=== PATIENT | male | born 1990 | race Caucasian/White ===

== ENCOUNTER 2017-10-16 18:34 | Emergency (ER) | payer BC ==
[2017-10-16 18:47] VITALS: BP 126/98; PULSE 94; O2SAT 96
[2017-10-16] MEDS ORDERED: XYLOCAINE 2% HCL 20 ML MDV ONE (18:48)
[2017-10-16] MEDS ORDERED: XYLOCAINE 2% HCL 20 ML MDV IJ ONE (18:50)
--- NOTE | 2017-10-16 19:22 | ERPHSYRPT ---
- History of Present Illness Time Seen by Provider: 10/16/17 18:55 Source: patient Exam Limitations: clinical condition Patient Subjective Stated Complaint: pt reports accidently cutting tip of middle finger of left hand with a razor blade-denies numbness or tinlging to extremity Triage Nursing Assessment: pt pink warm and [id number] noted to finger with bleeding controlled with pressure upon arrival-resp easy and nonlabored-pt anxious but cooperative Physician History: PATIENT SUSTAINED LACERATION TO HIS LEFT MIDDLE FINGER TIP OFF UTILITY KNIFE, ASSOCIATED WITH BLEEDING. Occurred: just prior to arrival Method of Injury: incised Quality: constant Severity of Pain-Max: mild Severity of Pain-Current: mild Extremities Pain Location: 4th finger: right Modifying Factors: Improves With: movement Associated Symptoms: none Allergies/Adverse Reactions: No Known Drug Allergies Allergy (Unverified 10/16/17 18:42) Hx Tetanus, Diphtheria Vaccination/Date Given: Yes Hx Influenza Vaccination/Date Given: No Hx Pneumococcal Vaccination/Date Given: No Immunizations Up to Date: Yes - Review of Systems Constitutional: No Symptoms Musculoskeletal: Injury Psychological: No Symptoms Endocrine: No Symptoms - Past Medical History Pertinent Past Medical History: No - Past Surgical History Past Surgical History: Yes Musculoskeletal: Orthopedic Surgery - Social History Smoking Status: Current every day smoker How long have you smoked: yrs Exposure to second hand smoke: Yes Drug Use: none Patient Lives Alone: No - Nursing Vital Signs Nursing Vital Signs: Initial Vital Signs Temperature 98.4 F 10/16/17 18:42 Pulse Rate 94 H 10/16/17 18:42 Respiratory Rate 18 10/16/17 18:42 Blood Pressure 126/98 10/16/17 18:42 O2 Sat by Pulse Oximetry 96 10/16/17 18:42 Pain Scale Pain Intensity 7 - Physical Exam General Appearance: no apparent distress Hand Exam: laceration (THERE IS A 2CM LACERATION OVER DISTAL PHALANGX LEFT MIDDLE FINGER ADJACENT TO NAIL FOLD, FULL RANGE OF MOTION OF MCP, PIP AND DIP JOINT) SpO2 Interpretation: normal SpO2: 96 Oxygen Delivery: Room Air Procedures - Laceration/Wound Repair Left Hand Wound Location: Left (MIDDLE FINGER) Wound Length (cm): 2 Wound's Depth, Shape: linear Wound Explored: clean Irrigated: Yes Hibiclens Prep: Yes Anesthesia: digital block, 2% Lidocaine Volume Anesthetic (ccs): 5 Wound Repaired With: sutures Suture Size/Type: 4-0, nylon Number of Sutures: 7 Sterile Dressing Applied?: Yes Ordered Tests: Active Orders 24 hr Category Date Time Status Wound Care STAT Care 10/16/17 18:50 Active Medication Summary Discontinued Medications Generic Name Dose Route Start Last Admin Trade Name [place] PRN Reason Stop Dose Admin Lidocaine HCl Confirm 10/16/17 18:48 Xylocaine 2% Hcl 20 Ml Mdv Administered 10/16/17 18:49 Dose 1 ml .ROUTE .STK-MED ONE Lidocaine HCl 5 ml 10/16/17 18:50 10/16/17 18:53 Xylocaine 2% Hcl 20 Ml Mdv IJ 10/16/17 18:51 5 ml STAT ONE Administration - Progress Progress: improved Counseled pt/family regarding: diagnosis, need for follow-up - Departure Time of Disposition: 19:25 Departure Disposition: Home Clinical Impression: LACERATION LEFT MIDDLE FINGER Condition: Stable Critical Care Time: No Additional Instructions: KEFLEX 500MG EVERY 8 HOURS FOR 8 DAYS. WATCH FOR SIGNS OF INFECTION, REDNESS, SWELLING OR DRAINAGE. HAVE STITCHES REMOVED AT 10 DAYS. NORCO 5/325 EVERY 4 HOURS FOR PAIN. Prescriptions: Cephalexin Mh 500 mg [Keflex 500 mg] 500 mg PO TID #24 capsule
[2017-10-16] MEDS ORDERED: KEFLEX 500 MG PO ONE (19:24)
[2017-10-16] MEDS ORDERED: NORCO 5/325 MG PO ONE (19:25)
[2017-10-16] MEDS ORDERED: KEFLEX 500 MG ONE (19:29)
[2017-10-16] MEDS ORDERED: NORCO 5/325 MG ONE (19:30)
== END 2017-10-16 19:46 | disposition home or self-care (01) ==
LOC: ED 18:34
PROC: 0HQGXZZ Repair Left Hand Skin, External Approach (ICD-10-PCS; principal; 2017-10-16)
DX: S61.213A Laceration without foreign body of left middle finger without damage to nail, initial encounter (principal); W26.8XXA Contact with other sharp object(s), not elsewhere classified, initial encounter
CPT/HCPCS: 12001; 96372; 99284; A9270-GY